=== PATIENT | female | born 1940 | race Caucasian/White ===

== ENCOUNTER 2017-04-15 14:48 | Emergency (ER) | payer BC ==
[~2017-04-15] VITALS: Ht 177.8 cm; Wt 71.3 kg
[2017-04-15 15:43] LABS: HEMATOCRIT 42.9 % (36.0-46.0); MCH 25.8 PG (29.0-34.0); MCV 83.1 FL (83-99); MEAN PLAT.VOLUME 9.5 uM^3 (9.5-12.4); PLATELET COUNT 281 K/uL (156-360); RBC DIS.WIDTH-CV 13.8 % (11.8-14.6); RBC DIS.WIDTH-SD 42.2 % (39-53); RED BLOOD COUNT 5.16 M/uL (3.80-5.20); WHITE BLOOD COUNT 7.8 K/uL (4.1-10.2)
[2017-04-15 16:00] LABS: CHLORIDE 103 mEq/L (99-109); POTASSIUM 4.4 mEq/L (3.7-5.4); SODIUM 136 mEq/L (136-147)
[2017-04-15 16:01] LABS: GLUCOSE 137 mg/dL (70-99)
[2017-04-15 16:03] LABS: ANION GAP 8 MEQ/L (2-14)
[2017-04-15 16:05] LABS: GFR ESTIMATE (CALCULATED) > 59 mL/min/
[2017-04-15 16:06] LABS: UREA NITROGEN (BUN) 22 mg/dL (9-23)
[2017-04-15 17:03] LABS: PROTHROMBIN TIME 11.2 SEC (10.2-12.9)
[2017-04-15 17:05] LABS: TOTAL BILIRUBIN 0.3 mg/dL (0.0-1.0)
[2017-04-15 17:06] LABS: ALKALINE PHOSPHATASE 73 IU/L (3-129); PTT 28.3 SEC (25-37)
[2017-04-15 17:09] LABS: DIRECT BILIRUBIN 0.1 mg/dL (0.0-0.3)
[2017-04-15 17:17] LABS: TROP-I INTERPRETATION NEGATIVE; TROPONIN-I < 0.01 ng/mL (0.0-0.30)
[2017-04-15 19:30] VITALS: BP 145/62
== END 2017-04-15 19:31 | disposition home or self-care (01) ==
LOC: EME 14:48
PROVIDERS: Emergency Medicine
DX: R55 Syncope and collapse (principal); I10 Essential (primary) hypertension; G43.909 Migraine, unspecified, not intractable, without status migrainosus; I34.1 Nonrheumatic mitral (valve) prolapse; Z85.3 Personal history of malignant neoplasm of breast
CPT/HCPCS: 71010; 80048; 80076; 81003; 83605; 83880; 84484; 85027; 85610; 85730; 93005; 99281; 99285; J7030

== ENCOUNTER → 2017-12-14 | Outpatient (CLI) | payer BC ==
[~2017-12-14] VITALS: Ht 177.8 cm; Wt 69.9 kg
[~2017-12-14] MED LIST: QUESTRAN PACKET4 GM PO
== END | disposition home or self-care (01) ==
LOC: AMB 12:56
DX: D12.0 Benign neoplasm of cecum (principal); D12.4 Benign neoplasm of descending colon; K63.5 Polyp of colon; H60.543 Acute eczematoid otitis externa, bilateral; E78.5 Hyperlipidemia, unspecified; I34.1 Nonrheumatic mitral (valve) prolapse; Z80.0 Family history of malignant neoplasm of digestive organs; Z82.5 Family history of asthma and other chronic lower respiratory diseases; Z81.1 Family history of alcohol abuse and dependence
CPT/HCPCS: 88304; 88305

== ENCOUNTER → 2018-02-18 | Outpatient (CLI) | payer BC ==
[~2018-02-18] MED LIST changes: +EXCEDRIN EXTRA1 EACH PO; +PRAVACHOL10 MG PO; +TYLENOL EXTRA500 MG PO
== END | disposition home or self-care (01) ==
LOC: CDC 08:10
DX: Z01.810 Encounter for preprocedural cardiovascular examination (principal); D12.3 Benign neoplasm of transverse colon; R94.31 Abnormal electrocardiogram [ECG] [EKG]
CPT/HCPCS: 93000

== ENCOUNTER 2018-02-21 09:22 | Day surgery (SDC) | payer BC ==
[~2018-02-21] VITALS: Ht 162.6 cm; Wt 67.6 kg
== END 2018-02-21 10:40 | disposition home or self-care (01) ==
LOC: 2SOUTH → SDC 09:22 → 2SOUTH 09:38 → SDC 10:40 → 2SOUTH 10:40 → CANRESERV 14:35 → ENRESERV 14:35 → EDSTATUS 15:07 → 2SOUTH 15:19
DX: D12.3 Benign neoplasm of transverse colon (principal); J00 Acute nasopharyngitis [common cold]; Z53.09 Procedure and treatment not carried out because of other contraindication
CPT/HCPCS: 87641